=== PATIENT | female | born 1945 | race Caucasian/White ===

== ENCOUNTER 2022-01-29 23:17 | Emergency (ER) | payer OTHER ==
[~2022-01-29 23:17] MED LIST: ALLOPURINOL100 MG PO; COLESTID 1GM TAB1 GM PO; DOMEBORO PACKE1 EACH TOP; LISINOPRIL-HCT1 EACH PO; NAPROSYN250 MG PO; NAPROXEN500 MG PO; NEURONTIN300 MG PO; NYSTATIN1 EAC1 TOP; OXY-IR 5MG5 MG PO; PROLIA60 MG/1 ML SC; PROTONIX 40MG T40 MG PO; TEGRETOL200 MG PO; VIBRAMYCIN100 MG PO; ZINC OXIDE28 GM TOP; ZOCOR20 MG PO
[2022-01-30 00:35] LABS: BASOPHIL 0.7 % (0-2); EOSINOPHIL 7.7 % (0-7); HCT 34.7 % (37.0-47.0); LYMPHOCYTE 17.6 % (15-48); MCH 33.6 pg (25.0-31.0); MCHC 34.6 g/dL (32.0-36.0); MCV 97.2 fL (78.0-100.0); MONOCYTE 7.4 % (0-12); MPV 8.7 fL (6.0-9.5); NEUTROPHIL 65.8 % (41-80); NRBC 0; PLT 204 K/uL (150-400); RBC 3.57 M/uL (4.20-5.40); RDW 13.9 % (11.5-14.0); WBC 7.4 K/uL (4.0-10.5)
[2022-01-30 01:01] LABS: ALBUMIN 3.6 g/dL (3.4-5.0); BILIRUBIN - TOTAL 0.3 mg/dL (0.2-1.0); BUN/CREAT RATIO (CALC) 21.6 RATIO; CREATININE 0.88 mg/dL (0.51-0.95); GLOBULIN (CALCULATION) 3.6 g/dL; POTASSIUM 3.8 mmol/L (3.5-5.1); TOTAL PROTEIN 7.2 g/dL (6.4-8.2)
[2022-01-30] MEDS ORDERED: HYDRALAZINE25 MG PO (02:56)
== END 2022-01-30 03:10 | disposition home or self-care (01) ==
LOC: FER 23:17
PROVIDERS: Emergency Medicine
DX: I10 Essential (primary) hypertension (principal)
CPT/HCPCS: 36415; 71045; 80053; 84484; 85025; 93005; J3490